=== PATIENT | male | born 1950 | race Caucasian/White ===

== ENCOUNTER 2021-07-11 22:04 | Inpatient (IN) | payer MEDICARE ==
[~2021-07-11] VITALS: Ht 177.8 cm; Wt 82.6 kg
--- NOTE | 2021-07-11 22:34 | NUR ---
Called Firebrick And Refractory Tile Repairer for a sitter, no sitter available at this time, ER staff will monitor patient for now.
[2021-07-11] MEDS ORDERED: MULT-594 PO (22:50)
[2021-07-11] MEDS ORDERED: FINA5TAB11 PO (22:50)
[2021-07-11] MEDS ORDERED: LEVO25TA9 PO (22:50)
[2021-07-11] MEDS ORDERED: AMIT10TA6 PO (22:50)
[2021-07-11] MEDS ORDERED: TRAM50TA2 PO (22:50)
[2021-07-11] MEDS ORDERED: CYCL5TAB PO (22:50)
[2021-07-11] MEDS ORDERED: TRAZ-257 PO (22:50)
[2021-07-11] MEDS ORDERED: HALOPERIDOL LACTATE 5 MG/1 ML VIAL IM ONE (23:15)
[2021-07-11] MEDS ORDERED: diphenhydrAMINE 50 MG/1 ML VIAL IM ONE (23:15)
[2021-07-11] MEDS ORDERED: LORAZEPAM 2 MG/1 ML VIAL IM ONE (23:15)
[2021-07-11] MEDS ORDERED: HALOPERIDOL LACTATE 5 MG/1 ML VIAL ONE (23:19)
[2021-07-11] MEDS ORDERED: diphenhydrAMINE 50 MG/1 ML VIAL ONE (23:19)
[2021-07-11] MEDS ORDERED: LORAZEPAM 2 MG/1 ML VIAL ONE (23:20)
--- NOTE | 2021-07-12 00:38 | NUR ---
Pt medically cleared by Dr. Dorantes.
--- NOTE | 2021-07-12 00:40 | NUR ---
Report given to [facility].
[2021-07-12 01:10] VITALS: BP 125/79
[2021-07-12] MEDS ORDERED: MAGNESIUM HYDROXIDE 30 ML LIQUID UDC PO PRN (01:30)
[2021-07-12] MEDS: LORAZEPAM 1 MG TABLET PO PRN (01:42)
--- NOTE | 2021-07-12 04:11 | NUR ---
Pt arrived in the unit at 0110 from ER via gurney. Pt on 72 hour hold, gravely disabled. Pt is uncooperative and restless. Pt denies SI. No acute distress noted. Denies pain/ discomfort. Pt noted to have flight of ideas and selective in questions he wants to answer. Refused to sign paper work but agreed for photos. Pt oriented in room and snack provided. Ativan given. Pt safely in bed. Safety measures maintained. Will continue to monitor.
[2021-07-12 07:30] VITALS: BP 122/83
[2021-07-12] MEDS ORDERED: LEVOTHYROXINE SODIUM 25 MCG TABLET PO ONE (12:30)
--- NOTE | 2021-07-12 14:00 | NUR ---
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 Claimed he wants a different Psychiatrist , informed he can talk to Dr Shields in the morning when he comes back do do his rounds. Noted needy demanding behavior, and can be sarcastic with his answers .
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
--- NOTE | 2021-07-12 15:30 | NUR ---
PT NOTED HIGHLY AGITATED AND HOSTILE. HE HAD A CONFRONTATION WITH ANOTHER PT REGARDING WHAT CHANNEL TO WATCH. INSTRUCTED TO TAKE TURNS WITH WATCHING TV SHOWS OF PREFERENCE. BEGAN STATING TO GENERAL MAINTENANCE HELPER "YOU FUCKING CUNT. YOU FUCKING BITCH. YOU DON'T GIVE A SHIT, DO YOU?" REDIRECTED NEEDED.
[2021-07-12 16:00] VITALS: BP 152/88
[2021-07-12] MEDS: MAG HYDROX/AL HYDROX/SIMETH 30 ML LIQUID UDC PO PRN (16:10)
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
[2021-07-12] MEDS: DIVALPROEX 125 MG TABLET.DR PO SCH ×2 (17:00→17:04)
--- NOTE | 2021-07-12 17:00 | NUR ---
RECEIVED A CALL FROM BULLDOZER/LOADER/COMPACTOR/SCRAPER STATING PT CALLED ASKING FOR HELP. INSTRUCTED PT NOT DO DIAL THE POLICE, AND TO NOTIFY STAFF IF HE NEEDS ASSISTANCE. PT VERY SARCASTIC AND DEMEANING TO STAFF AT TIMES.
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
--- NOTE | 2021-07-12 17:11 | NUR ---
Gps/Lead Game Designer- Per patient he was spitting up blood , he's having perforated ulcer per pt. Instructed if any blood noted saved in tissue paper. Patient noted doing dry hacking cough , discouraged from doing so, continue to monitor behavior. Patient requesting the address of the ER when he came from in the beginning([facility])Informed patient now he is at [facility] (locked facility) Noted patient gets dramatic claimed he does not feel good , observed walking back to his room , cwill continue to monitor behavior.
--- NOTE | 2021-07-12 17:49 | NUR ---
Gps/Road Design Draftsperson- Per TEAM COORDINATOR patient sitting in the bathroom trying to cough up , scanty blood smears noted from the paper towel.Continue to monitor. Patient was give 30 ml malalox po
[2021-07-12 20:00] VITALS: BP 147/89
[2021-07-12] MEDS: QUETIAPINE FUMARATE 25 MG TABLET PO SCH (20:45)
[2021-07-12] MEDS: ACETAMINOPHEN 325 MG TABLET PO PRN (20:46)
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
[2021-07-12] MEDS: ZOLPIDEM 5 MG TABLET PO PRN (22:16)
[2021-07-13] MEDS: LORAZEPAM 1 MG TABLET PO PRN (01:38)
--- NOTE | 2021-07-13 01:40 | NUR ---
PATIENT WAS AWAKEN BY ROOM MATE. HE WAS NOTED IRRITABLE, HYPERVERBAL, GRANDIOSE DELUSIONAL THINKING AND AGITATION. HE IS NOTED WITH POOR INSIGHT AND JUDGMENT TO THE REASON FOR HIS ADMISSION TO MHU. HE REQUIRED MULTIPLE REDIRECTION AND REASSURANCE. ATIVAN 1MG PO PRN WAS GIVEN FOR AGITATION. WILL CONITNUE TO MONITOR.
[2021-07-13] MEDS: ACETAMINOPHEN 325 MG TABLET PO PRN ×2 (04:06→21:23)
[2021-07-13 07:43] VITALS: BP 129/91
[2021-07-13] MEDS: DIVALPROEX 125 MG TABLET.DR PO SCH ×4 (08:44→16:22)
--- NOTE | 2021-07-13 10:30 | NUR ---
Gps/Web Engineer- Patient requesting to see another Psychiatrist , Dr Shields was aware, was instructed to have available Psychiatrist see patient in am.
[2021-07-13] MEDS: NEOMY/BACITRAC/POLYMI OINT 28.35 GM TUBE TOP SCH (12:35)
[2021-07-13] MEDS: FINASTERIDE 5 MG TABLET PO SCH (12:36)
[2021-07-13] MEDS: LEVOTHYROXINE SODIUM 25 MCG TABLET PO SCH (14:01)
[2021-07-13 15:53] VITALS: BP 155/89
--- NOTE | 2021-07-13 16:23 | NUR ---
Gps/Game Producer- Patient not consistent in his medication compliance, refusing to take depakote 125 mg ," i done want to be drugged up, i had IBC " Explained to patient reason for his mediations/rationale, per pt. he has the right to refused, his med. informed if he kept refusing his meds. Psychiatrist might resort to different treatment, claimed his hold is up soon
[2021-07-13] MEDS: QUETIAPINE FUMARATE 25 MG TABLET PO SCH (20:04)
--- NOTE | 2021-07-13 21:00 | NUR ---
received patient in the day room, he is noted A/O x 2. he continue hyperverbal, poor insight and judgment is noted as to the reason for his admission to MHU. patient is reassured for her safety. V/S stable. PO fluids and snacks are given. Safety and fall precaution in place. will continue to monitor.
[2021-07-13] MEDS: ZOLPIDEM 5 MG TABLET PO PRN (21:22)
[2021-07-13 21:53] VITALS: BP 129/92
[2021-07-14] MEDS: TRAMADOL HCL 50 MG TABLET PO PRN ×2 (00:28→13:38)
[2021-07-14] MEDS ORDERED: OLANZAPINE 10 MG VIAL IM ONE (01:15)
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
--- NOTE | 2021-07-14 02:20 | NUR ---
PATIENT NOTED CALM. HE WAS TAKEN TO THE TOILET AND PLACED BACK IN A JAREK CHAIR FOR SAFETY. HE STATED, "I AM SORRY, I DIDN'T MEAN TO HURT HIM, I WAS HEARING VOICES, I THOUGHT THE DOCTOR AND OTHER PEOPLE WERE CHASING ME. I DIDN'T MEAN TO HURT HIM, I AM SORRY, I AM SORRY". WILL CONTINUE TO MONITOR.
[2021-07-14] MEDS: LORAZEPAM 1 MG TABLET PO PRN (02:21)
[2021-07-14] MEDS: CYCLOBENZAPRINE HCL 10 MG TABLET PO PRN ×2 (03:05→22:30)
[2021-07-14] MEDS: ACETAMINOPHEN 325 MG TABLET PO PRN (05:10)
[2021-07-14] MEDS: LEVOTHYROXINE SODIUM 25 MCG TABLET PO SCH (06:32)
[2021-07-14 07:36] VITALS: BP 137/86
[2021-07-14] MEDS ORDERED: ZOLPIDEM 5 MG TABLET PO PRN (08:30)
[2021-07-14] MEDS: MULTIVITAMINS,THERAPEUTIC TABLET PO SCH (08:54)
[2021-07-14] MEDS: NEOMY/BACITRAC/POLYMI OINT 28.35 GM TUBE TOP SCH (08:59)
[2021-07-14] MEDS ORDERED: DIVALPROEX 125 MG TABLET.DR PO SCH (09:00)
[2021-07-14] MEDS: FINASTERIDE 5 MG TABLET PO SCH (09:01)
[2021-07-14] MEDS: OLANZAPINE 5 MG TABLET PO SCH ×2 (09:01→20:45)
[2021-07-14] MEDS: DIVALPROEX 250 MG TABLET.DR PO SCH ×2 (09:01→20:45)
--- NOTE | 2021-07-14 10:07 | NUR ---
Firearms Report: Cemetery Counselor completed and submitted a DOJ firearms report for 5150 grave disability certifications. A copy of report has been placed in patient chart.
--- NOTE | 2021-07-14 12:16 | NUR ---
SW Initial Discharge Note Patient currently resides at home [address] [place] [address] ([phone]). Patient currently resides alone and reports to have limited social support. SW met with pt to discuss discharge planning and pt appears to want to return home upon discharge.
[2021-07-14 15:37] VITALS: BP 165/83
--- NOTE | 2021-07-14 20:30 | NUR ---
Received patient in the day room. he is noted A/O x 2. continue hyperverbal, sarcastic, grandiose delusional thinking hyperverbal, attention seeker manipulative, and restless. Patient is hard to redirect, requires multiple redirections. he is able to comply with medication regiment. He was given PO fluids and snacks. he refused V/S. he continue reusing blood drawn. He is reassured for his safety. Safety and fall precaution are in place. will continue to monitor.
[2021-07-15] MEDS: TRAMADOL HCL 50 MG TABLET PO PRN ×2 (03:12→21:13)
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
[2021-07-15] MEDS: LEVOTHYROXINE SODIUM 25 MCG TABLET PO SCH (06:46)
[2021-07-15 07:30] VITALS: BP 154/99
[2021-07-15 07:42] LABS: HEMATOCRIT 37.5 % (36.7-47.1); MEAN CORPUSCULAR HEMOGLOBIN 32.8 uug (23.8-33.4); MEAN CORPUSCULAR VOLUME 95.9 fL (73.0-96.2); PLATELET COUNT (AUTO) 296 K/uL (152-348)
[2021-07-15 07:51] LABS: MAGNESIUM 2.2 mg/dL (1.8-2.4); POTASSIUM 3.9 mmol/L (3.5-5.1)
[2021-07-15 08:07] LABS: THYROID STIMULATING HORMONE 15.193 mIU/mL (0.358-3.740)
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
[2021-07-15] MEDS: LORAZEPAM 1 MG TABLET PO PRN ×2 (08:46→22:16)
[2021-07-15] MEDS: DIVALPROEX 250 MG TABLET.DR PO SCH ×2 (08:46→20:57)
[2021-07-15] MEDS: FINASTERIDE 5 MG TABLET PO SCH (08:46)
[2021-07-15] MEDS: MULTIVITAMINS,THERAPEUTIC TABLET PO SCH (08:47)
[2021-07-15] MEDS: NEOMY/BACITRAC/POLYMI OINT 28.35 GM TUBE TOP SCH (08:48)
[2021-07-15] MEDS: OLANZAPINE 5 MG TABLET PO SCH ×2 (10:32→20:57)
--- NOTE | 2021-07-15 12:58 | NUR ---
GPS: PER DR SHARMA, REQUESTING URINALYSIS PT NOTED WITH HISTORY OF PROSTATITIS AND PER PT HE WAS TAKING ATB. TO RULE OUT ANY INFECTION.
[2021-07-15 15:40] VITALS: BP 151/71
--- NOTE | 2021-07-15 16:31 | NUR ---
GPS: PT APPROACHED THE LEGISLATIVE CORRESPONDENT AFTER A NEUROLOGIST SAW THE PT AND STATED THAT PER NEUROLOGIST HE WAS ALREADY CLEAR AND HE CAN NOW BE READY FOR DISCHARGE AND TAKE THE BUS. RE-EDUCATED PT THAT WILL HAVE TO WAIT TILL TOMORRROW AND SPEAK WITH PSYCHIATRIST WHO WILL DECIDE ON THE NEXT PLAN. PT UNDERSTOOD.
[2021-07-15 20:47] VITALS: BP 142/83
[2021-07-15] MEDS ORDERED: TRAZODONE 50 MG TABLET PO SCH (21:00)
[2021-07-16] MEDS: LORAZEPAM 1 MG TABLET PO PRN ×3 (04:35→22:50)
--- NOTE | 2021-07-16 04:52 | NUR ---
remains attention seeking needy, and demanding. No aggressive behavior noted, PRN ativan was given at 2215, and he slept for a few hours, Ultram was given at 2112, for generalized pain, with good results. HE is now needy, tearful, and attention seeking. PRN ativan was given at 434, for anxiety. monitored closely for safety.
--- NOTE | 2021-07-16 06:00 | NUR ---
Slept 45 minutes, total. Continues be intrusive, and attention seeking.
[2021-07-16] MEDS: LEVOTHYROXINE SODIUM 75 MCG TABLET PO SCH (06:18)
[2021-07-16] MEDS: TRAMADOL HCL 50 MG TABLET PO PRN ×2 (06:19→21:58)
[2021-07-16 07:30] VITALS: BP 119/78
[2021-07-16] MEDS: NEOMY/BACITRAC/POLYMI OINT 28.35 GM TUBE TOP SCH (09:05)
[2021-07-16] MEDS: MULTIVITAMINS,THERAPEUTIC TABLET PO SCH (09:05)
[2021-07-16] MEDS: OLANZAPINE 5 MG TABLET PO SCH (09:05)
[2021-07-16] MEDS: FINASTERIDE 5 MG TABLET PO SCH (09:05)
[2021-07-16] MEDS: DIVALPROEX 250 MG TABLET.DR PO SCH ×2 (09:05→21:45)
[2021-07-16] MEDS: ACETAMINOPHEN 325 MG TABLET PO PRN (15:39)
--- NOTE | 2021-07-16 16:13 | NUR ---
PROBABLE CAUSE HEARING: Patient's probable cause hearing was held today for the 5250 hold. 5250 hold upheld for GD. Patient requesting a writ hearing. Writ hearing petition faxed to court by this rfp writer. Court was called to confirm document was received but the court is closed.
[2021-07-16 16:29] VITALS: BP 150/93
[2021-07-16 20:14] VITALS: BP 118/66
[2021-07-16] MEDS ORDERED: OLANZAPINE 5 MG TABLET PO SCH (21:00)
[2021-07-16] MEDS: MAG HYDROX/AL HYDROX/SIMETH 30 ML LIQUID UDC PO PRN (22:39)
[2021-07-17] MEDS: ACETAMINOPHEN 325 MG TABLET PO PRN (04:46)
[2021-07-17] MEDS: LEVOTHYROXINE SODIUM 75 MCG TABLET PO SCH (06:28)
[2021-07-17 06:49] LABS: *BILIRUBIN,URIN NEGATIVE (NEGATIVE); *BLOOD, URINE NEGATIVE (NEGATIVE); *CLARITY,URINE CLEAR (CLEAR); *COLOR,URINE YELLOW (YELLOW); *KETONES,URINE NEGATIVE (NEGATIVE); *UROBILINOGEN,URINE 0.2 E.U./dl (NORMAL); LEUKOCYTE ESTERASE ,URINE NEGATIVE (NEGATIVE); NITRITE, URINE NEGATIVE (NEGATIVE); PH,URINE 6.5 (5.0-8.0); UGLUCOSE NEGATIVE (NEGATIVE)
[2021-07-17] MEDS: MULTIVITAMINS,THERAPEUTIC TABLET PO SCH (09:10)
[2021-07-17] MEDS: FINASTERIDE 5 MG TABLET PO SCH (09:10)
[2021-07-17] MEDS: OLANZAPINE 5 MG TABLET PO SCH (09:10)
[2021-07-17] MEDS: NEOMY/BACITRAC/POLYMI OINT 28.35 GM TUBE TOP SCH (09:11)
[2021-07-17] MEDS: DIVALPROEX 250 MG TABLET.DR PO SCH ×2 (09:11→20:24)
[2021-07-17] MEDS: LORAZEPAM 1 MG TABLET PO PRN ×2 (14:11→22:42)
--- NOTE | 2021-07-17 14:12 | NUR ---
Gps/Spine Surgeon- Anxious, complaining about his roommate's behavior, claimed they does'nt get along intrusive behavior . room changed to #141 A.
[2021-07-17 16:00] VITALS: BP 145/81
--- NOTE | 2021-07-17 17:10 | NUR ---
Gps/Director Plans- Patient come out of his room limping, noted his left foot/ankle slightly swollen, slightly reddened, complained of being painful. Luz Elena Sanon DNP was called order received. Ultram 50 mg 1 tab. po, given, ice pack to left ankle applied. foot elevated on pillow. X-ray of left ankle complete portable.
[2021-07-17] MEDS: TRAMADOL HCL 50 MG TABLET PO PRN (17:13)
[2021-07-17] MEDS ORDERED: PETROLATUM,WHITE JELLY 28.35 GM TUBE TP PRN (18:00)
[2021-07-17 20:00] VITALS: BP 137/82
[2021-07-17] MEDS ORDERED: OLANZAPINE 5 MG TABLET PO SCH (21:00)
[2021-07-18] MEDS: TRAMADOL HCL 50 MG TABLET PO PRN ×3 (04:36→21:54)
[2021-07-18] MEDS: LEVOTHYROXINE SODIUM 75 MCG TABLET PO SCH (06:02)
[2021-07-18 07:12] LABS: HEMATOCRIT 37.4 % (36.7-47.1); MEAN CORPUSCULAR HEMOGLOBIN 32.1 uug (23.8-33.4); PLATELET COUNT (AUTO) 320 K/uL (152-348)
[2021-07-18 07:29] LABS: BILIRUBIN,TOTAL 0.5 mg/dL (0.2-1.0); POTASSIUM 4.3 mmol/L (3.5-5.1); TOTAL PROTEIN, SERUM 7.7 g/dL (6.4-8.2)
[2021-07-18 07:30] VITALS: BP 153/93
[2021-07-18] MEDS: MULTIVITAMINS,THERAPEUTIC TABLET PO SCH (08:42)
[2021-07-18] MEDS: OLANZAPINE 5 MG TABLET PO SCH (08:42)
[2021-07-18] MEDS: DIVALPROEX 250 MG TABLET.DR PO SCH ×3 (08:42→16:37)
[2021-07-18] MEDS: FINASTERIDE 5 MG TABLET PO SCH (08:42)
[2021-07-18] MEDS: NEOMY/BACITRAC/POLYMI OINT 28.35 GM TUBE TOP SCH (08:43)
--- NOTE | 2021-07-18 11:10 | NUR ---
PT RECEIVED AMBULATING UNIT HALLWAY. PT IS VERY INTRUSIVE, DEMANDING, FREQUENTLY AT NURSES STATION WITH DIFFERENT QUESTIONS AND NEEDS. DIFFICULT TO SATISY ALL OF PT'S NEEDS. 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 NO COMBATIVE BEHAVIOR NOTED.
[2021-07-18] MEDS: OLANZAPINE ZYDIS 5 MG TAB.RAPDIS PO SCH (16:36)
[2021-07-18 16:50] VITALS: BP 158/84
--- NOTE | 2021-07-18 18:53 | NUR ---
PT CONTINUES TO BE EXCESSIVELY RUDE, DEMANDING, INTRUSIVE, AND NEEDY. FREQUENTLY AT NURSES STATION MAKING MULTIPLE DEMANDS AND COMPLAINTS, STATING HIS NEEDS ARE NOT BEING MET. PT COMPLAINING OF RIGHT FOOT PAIN, HOG RINGER CALLED TO INCREASE TRAMADOL DOSAGE PER PT REQUEST. HOG RINGER JUST RECEIVED A CALL FROM SOMEONE WHO IDENTIFIED HERSELF ADVICE NURSE PATY FROM THE [facility], STATING PT CALLED HER AND COMPLAINING THAT STAFF IS NOT ATTENDING TO HIS NEEDS. EXPLAINED TO VA NURSE THAT ALL HIS NEEDS ARE BEING MET, BUT PT CAN BE FORGETFUL, NEEDY, AND MANIPULATIVE AT TIMES. VA NURSE AGREEABLE WITH EXPLANATION.
[2021-07-18 20:36] VITALS: BP 166/82
[2021-07-18] MEDS: TRAZODONE 50 MG TABLET PO SCH (21:31)
[2021-07-18] MEDS: LORAZEPAM 1 MG TABLET PO PRN (21:39)
--- NOTE | 2021-07-18 22:15 | NUR ---
GPS: Pt. continues to be needy,demanding,irritable,grandiose and delusional. Gets easily agitated when his demands are not granted immediately. Pt.feels entitled,complaining that he's not getting the care that he needs. Pt.is also manipulative. Due meds.given. Pain med.given earlier. Rest periods encouraged to facilitate sleep.Uncooperative with unit rules at times. Needs attended. Will continue to re-direct and monitor prn.
[2021-07-18] MEDS: OLANZAPINE ZYDIS 5 MG TAB.RAPDIS PO PRN (23:17)
[2021-07-19] MEDS: LEVOTHYROXINE SODIUM 75 MCG TABLET PO SCH (07:23)
[2021-07-19 08:15] VITALS: BP 128/81
[2021-07-19] MEDS: FINASTERIDE 5 MG TABLET PO SCH (08:31)
[2021-07-19] MEDS: OLANZAPINE ZYDIS 5 MG TAB.RAPDIS PO SCH ×2 (08:31→17:18)
[2021-07-19] MEDS: DIVALPROEX 250 MG TABLET.DR PO SCH ×3 (08:31→17:18)
[2021-07-19] MEDS: MULTIVITAMINS,THERAPEUTIC TABLET PO SCH (08:32)
[2021-07-19] MEDS: NEOMY/BACITRAC/POLYMI OINT 28.35 GM TUBE TOP SCH (08:33)
[2021-07-19] MEDS: TRAMADOL HCL 50 MG TABLET PO PRN ×2 (10:54→21:15)
--- NOTE | 2021-07-19 14:24 | NUR ---
GPS: Nursing Notes: Thought Disorder: Patient is awake and responding to his name, impaired judgment, calling a [facility] at [place] and complaining that he is not getting the care that he needs here, [facility] Addendum: 07/20/21 at 1235 by RATNA HERNANDEZ LVN GPS: Disregard above charting - staff - error.
--- NOTE | 2021-07-19 14:27 | NUR ---
GPS: Nursing Notes: Thought Disorder: Patient is awake and responding to his name, impaired judgment, calling a [facility] [place] and complaining that he is not getting the care that he needs here, [facility] Nurse called and stated that he is calling them complaining that he is not getting the care that he needs here, episode of cheeking his Depakote, stated "I am not here for mental problems... I am her for medical problems..", encouraged to be compliant with his medication, patient swallow his Depakote, argumentative, needy, manipulative behavior, saying one thing to one nurse and another thing to another nursed, redirected during shift, gets easily irritable when redirected or when his demands are not met immediately, continue with treatment plan.
[2021-07-19] MEDS: LORAZEPAM 1 MG TABLET PO PRN ×2 (14:44→22:58)
--- NOTE | 2021-07-19 14:48 | NUR ---
PT AT NURSES STATION, QUITE PLEASANT AT THIS TIME. BUT PT IS NOTED WITH DELUSIONS OF GRANDIOSITY. 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 QUITE HYPERVERBAL BUT REDIRECTABLE AND PLEASANT.
[2021-07-19 15:48] VITALS: BP 133/89
[2021-07-19 20:00] VITALS: BP 138/91
[2021-07-19] MEDS: TRAZODONE 50 MG TABLET PO SCH (20:20)
--- NOTE | 2021-07-19 20:30 | NUR ---
RECEIVED PATIENT IN THE DAY ROOM WATCHING TV. HE IS NOTED A/O X 3 ABLE TO MAKE HIS NEEDS KNOWN. HE CONTINUE HYPERVERBAL. GRANDIOSE DELUSIONAL THINKING, AND PSYCHOSOMATIC . PATIENT STATED, "I AM A VERY EDUCATED MAN AND I UNDERSTAND EVERYTHING". HE ALSO STATED, "I DON'T BELONG IN THIS UNIT, I NEED TO SEE THE MEDICAL DOCTOR, I NEED TO BE ON THE MEDIAL FLOOR". PATIENT ALSO NOTED WITH POOR INSIGHT AND JUDGMENT TO THE REASON FOR HIS ADMISSION TO MHU. PT IS REASSURED FOR HIS SAFETY. SAFETY AND FALL PRECAUTIONS IN PLACE. V/S STABLE. HE WAS GIVEN PO FLUIDS AND SNACKS, WILL CONTINUE TO MONITOR.
[2021-07-20] MEDS: LEVOTHYROXINE SODIUM 75 MCG TABLET PO SCH (06:57)
[2021-07-20 07:30] LABS: HEMATOCRIT 37.7 % (36.7-47.1); MEAN CORPUSCULAR HEMOGLOBIN 32.4 uug (23.8-33.4); MEAN CORPUSCULAR VOLUME 96.6 fL (73.0-96.2); PLATELET COUNT (AUTO) 352 K/uL (152-348)
[2021-07-20 07:40] VITALS: BP 125/82
[2021-07-20 08:12] LABS: ALANINE AMINOTRANSFERASE 48 U/L (16-63); ALKALINE PHOSPHATASE 74 U/L (50-136); ASPARTATE AMINOTRANSFERASE 36 U/L (15-37); BILIRUBIN,TOTAL 0.5 mg/dL (0.2-1.0); CARBON DIOXIDE 31 mmol/L (21-32); CHLORIDE 104 mmol/L (98-107); CREATININE 1.2 mg/dL (0.6-1.3); GLUCOSE 112 mg/dL (74-106); POTASSIUM 4.7 mmol/L (3.5-5.1); TOTAL PROTEIN, SERUM 7.5 g/dL (6.4-8.2); UREA NITROGEN, BLOOD 10 mg/dL (7-18)
[2021-07-20] MEDS: MULTIVITAMINS,THERAPEUTIC TABLET PO SCH (08:20)
[2021-07-20] MEDS: DIVALPROEX 250 MG TABLET.DR PO SCH ×3 (08:20→16:30)
[2021-07-20] MEDS: OLANZAPINE ZYDIS 5 MG TAB.RAPDIS PO SCH ×2 (08:21→16:31)
[2021-07-20] MEDS: FINASTERIDE 5 MG TABLET PO SCH (08:21)
[2021-07-20] MEDS: NEOMY/BACITRAC/POLYMI OINT 28.35 GM TUBE TOP SCH (08:22)
[2021-07-20 11:08] LABS: VALPROIC ACID < 3 ug/mL (50-100)
--- NOTE | 2021-07-20 13:21 | NUR ---
GPS: Nursing Notes: C/O Having Allergic Reaction: Patient complaining of having rashes on his body, complaining of having an allergic reaction, believes that he is going to here, Brian PARIS informed, CUPOLA OPERATOR examine the patient and explained the treatment for his dermatitis per CUPOLA OPERATOR diagnosis, continue to monitor patient for safety, staff will follow up with Brian PARIS orders as soon as they are verify by the pharmacy, continue with treatment plan.
[2021-07-20] MEDS: diphenhydrAMINE 25 MG CAP PO PRN ×2 (13:36→23:10)
[2021-07-20] MEDS: ACETAMINOPHEN 325 MG TABLET PO PRN (14:29)
[2021-07-20] MEDS: CYCLOBENZAPRINE HCL 10 MG TABLET PO PRN (14:29)
[2021-07-20] MEDS: TRIAMCINOLONE ACET 0.025% CREA 15 GM TUBE TP SCH (15:54)
[2021-07-20 16:03] VITALS: BP 137/78
[2021-07-20 20:16] VITALS: BP 163/91
--- NOTE | 2021-07-20 20:45 | NUR ---
GPS: Refused to have his B/P re-checked at this time despite numerous attempts by staff. Denies any SOB,chest pains when asked.
[2021-07-20] MEDS: TRAZODONE 50 MG TABLET PO SCH (20:49)
[2021-07-20] MEDS: TRAMADOL HCL 50 MG TABLET PO PRN (20:55)
[2021-07-20] MEDS: LORAZEPAM 1 MG TABLET PO PRN (22:26)
[2021-07-20] MEDS: OLANZAPINE ZYDIS 5 MG TAB.RAPDIS PO PRN (23:10)
[2021-07-21] MEDS: ACETAMINOPHEN 325 MG TABLET PO PRN (05:13)
[2021-07-21] MEDS: LEVOTHYROXINE SODIUM 75 MCG TABLET PO SCH (06:07)
[2021-07-21 08:03] VITALS: BP 148/81
[2021-07-21] MEDS: diphenhydrAMINE 25 MG CAP PO PRN (08:26)
[2021-07-21] MEDS: VALPROIC ACID 250 MG/5 ML LIQUID UDC PO SCH ×3 (08:26→17:00)
[2021-07-21] MEDS: FINASTERIDE 5 MG TABLET PO SCH (08:27)
[2021-07-21] MEDS: NEOMY/BACITRAC/POLYMI OINT 28.35 GM TUBE TOP SCH (08:27)
[2021-07-21] MEDS: OLANZAPINE ZYDIS 5 MG TAB.RAPDIS PO SCH (08:27)
[2021-07-21] MEDS: MULTIVITAMINS,THERAPEUTIC TABLET PO SCH (08:27)
[2021-07-21] MEDS ORDERED: LORAZEPAM 2 MG/1 ML VIAL IM ONE (08:30)
[2021-07-21] MEDS ORDERED: VALPROIC ACID 250 MG CAPSULE PO SCH (09:00)
[2021-07-21] MEDS ORDERED: VALPROIC ACID 250 MG/5 ML LIQUID UDC PO SCH (09:00)
--- NOTE | 2021-07-21 09:20 | NUR ---
Called the court at [phone] around 09:00 for patient writ, talked to Marianela who told me the writ is going to be held on July 23 at 08:[address] Shields at 09:10 am to let him know about the writ date and time.
[2021-07-21] MEDS: risperiDONE-M 0.5 MG TAB.RAPDIS PO SCH ×2 (09:57→17:01)
[2021-07-21] MEDS: TRIAMCINOLONE ACET 0.025% CREA 15 GM TUBE TP SCH (12:39)
[2021-07-21 16:03] VITALS: BP 126/87
--- NOTE | 2021-07-21 18:37 | NUR ---
GPS: Nursing Notes: Ativan - Date To Be Corrected By Pharmacy: Staff spoke with pharmacist to correct the date for the Ativan IM to be given tomorrow at 08:30 am.
--- NOTE | 2021-07-21 18:40 | NUR ---
GPS: Nursing Notes: MRI Set Up: Patient to have MRI tomorrow, Kelton , the vending service technician. set up the MRI for 09:00 am at 07/22/21, ambulance - [facility] will picking tech the patient at 08:30 am. Ativan 2mg IM to be given 10 min. prior picking tech for sedation, patient c/o claustrophobia, staff - Madie would follow up with patient tomorrow, staff schedule to work tomorrow, continue with treatment plan.
[2021-07-21] MEDS: TRAMADOL HCL 50 MG TABLET PO PRN (18:54)
[2021-07-21] MEDS: MAG HYDROX/AL HYDROX/SIMETH 30 ML LIQUID UDC PO PRN (19:17)
[2021-07-21] MEDS: LORAZEPAM 1 MG TABLET PO PRN (20:06)
[2021-07-21] MEDS ORDERED: TRAZODONE 50 MG TABLET PO SCH (21:00)
[2021-07-21] MEDS: CYCLOBENZAPRINE HCL 10 MG TABLET PO PRN (21:21)
[2021-07-22] MEDS: diphenhydrAMINE 25 MG CAP PO PRN (01:47)
[2021-07-22] MEDS: ACETAMINOPHEN 325 MG TABLET PO PRN (01:47)
[2021-07-22] MEDS: LEVOTHYROXINE SODIUM 75 MCG TABLET PO SCH (06:03)
[2021-07-22 08:00] VITALS: BP 140/88
[2021-07-22] MEDS ORDERED: LORAZEPAM 2 MG/1 ML VIAL IM ONE (08:30)
[2021-07-22] MEDS: NEOMY/BACITRAC/POLYMI OINT 28.35 GM TUBE TOP SCH (09:00)
[2021-07-22] MEDS: TRIAMCINOLONE ACET 0.025% CREA 15 GM TUBE TP SCH (09:00)
[2021-07-22] MEDS: FINASTERIDE 5 MG TABLET PO SCH (09:00)
[2021-07-22] MEDS: MULTIVITAMINS,THERAPEUTIC TABLET PO SCH (09:00)
[2021-07-22] MEDS: risperiDONE-M 0.5 MG TAB.RAPDIS PO SCH ×2 (09:00→17:58)
[2021-07-22] MEDS: VALPROIC ACID 250 MG/5 ML LIQUID UDC PO SCH ×3 (09:00→17:58)
--- NOTE | 2021-07-22 09:18 | NUR ---
GPS: PT LEFT THE HOSPITAL ACCOMPANIED BY KAYLIN, PROMOTIONS COORDINATOR AT 3RD FLOOR MED SURG VIA AMBULANCE, TO [facility] FOR MRI OF HEAD DUE TO HEAD INJURY/ CONCUSSION WITH ALTERED MENTAL STATUS. PT WAS ADMINISTERED WITH LORAZEPAM 2MG/1ML IM ON LEFT UPPER OUTER BUTTOCK AND TOLERATED WELL BY PT. DENIES ANY PAIN OR DISCOMFORT. PARAMEDICS SIGNED TRANSFER FORM AND MED LIST AND FACESHEET GIVEN.
--- NOTE | 2021-07-22 10:31 | NUR ---
GPS:PT CAME BACK FROM MRI AND TOLERATED WELL BY PT. NO AGGRESSIVE BEHAVIOR NOTED BY ASSISTANT SCIENTIST WHO ACCOMPANIED THE PT. PT FELL ASLEEP IN THE MIDDLE OF MRI. PT ALERT AND ORIENTED X 3 DENIES ANY PAIN OR DISCOMFORT.
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
--- NOTE | 2021-07-22 15:18 | NUR ---
GPS: PT COOPERATIVE WITH CARE AND COMPLIANT WITH MEDICATION. PT HYPERVERBAL AND NEEDY. 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 PT ATTENTION SEEKER. REDIRECTABLE AT TIMES. LIKES PACING THE HALLWAY AND TALKS TO OTHER PT. NO AGRESSIVE BEHAVIOR AT THIS TIME.
--- NOTE | 2021-07-22 15:19 | NUR ---
Clinical Social Work Note SW met with patient to discuss discharge planning. Patient is alert and oriented x3. Patient presents with withdrawn mood and flat affect. Patient stated that he does not want SNF placement and he would like to return home ([address] [place] [address]). Patient stated that [place] where he has support of neighbors as well as the managers at his home community. Patient stated that he also looking into private duty home care to help support him. Patient stated that his income is 5000 a month which is from the [facility] benefits. Plan: SW will help safe discharge when patient is ready.
[2021-07-22 16:14] VITALS: BP 113/80
--- NOTE | 2021-07-22 16:43 | NUR ---
GPS: PT IS COMING BACK AND FORTH AT THE NURSE STATION ASKING FOR A GLAUCOMA EYE DROP THAT PT HAS BEEN GETTING FOR ALMOST 3 YRS NOW. PT DOES NOT HAVE ANY SUCH MEDICATION. REDIRECTED AND RE-ORIENTED PT THAT HE DOES NOT GET THAT EYEDROPS EVEN BEFORE THE ADMISSION. PT STATED HE'S BEGINNING TO REMEMBER SOME THINGS AFTER THE CONCUSSION MADE HIM FORGETFUL.
--- NOTE | 2021-07-22 19:21 | NUR ---
GPS: SPOKE WITH ALBANIA GURROLA [phone]. PT WILL HAVE HEARING TOMORROW AT AROUND 9AM. PER ROSMERY, DR SHARMA WAS ALREADY INFORMED AND AWARE OF THE VIDEO CALL HEARING THAT WILL HAPPEN TOMORROW.
[2021-07-22] MEDS ORDERED: TRAZODONE 50 MG TABLET PO SCH (21:00)
[2021-07-22] MEDS ORDERED: risperiDONE-M 0.5 MG TAB.RAPDIS PO SCH (21:00)
[2021-07-22 21:07] VITALS: BP 153/90
[2021-07-22] MEDS ORDERED: risperiDONE 1 MG TABLET PO PRN (22:00)
[2021-07-22] MEDS: LORAZEPAM 1 MG TABLET PO PRN (22:39)
[2021-07-22 23:15] LABS: HEMATOCRIT 34.4 % (36.7-47.1); MEAN CORPUSCULAR HEMOGLOBIN 33.7 uug (23.8-33.4); PLATELET COUNT (AUTO) 325 K/uL (152-348)
[2021-07-22 23:23] LABS: BILIRUBIN,TOTAL 0.3 mg/dL (0.2-1.0); CREATININE 1.2 mg/dL (0.6-1.3); POTASSIUM 3.9 mmol/L (3.5-5.1); TOTAL PROTEIN, SERUM 7.1 g/dL (6.4-8.2)
[2021-07-22 23:31] LABS: THYROID STIMULATING HORMONE 12.19 mIU/mL (0.358-3.740)
[2021-07-22] MEDS: TRAMADOL HCL 50 MG TABLET PO PRN (23:45)
[2021-07-23] MEDS: LORAZEPAM 1 MG TABLET PO PRN ×2 (04:47→10:58)
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
[2021-07-23] MEDS: LEVOTHYROXINE SODIUM 75 MCG TABLET PO SCH (07:03)
--- NOTE | 2021-07-23 07:06 | NUR ---
Slept 1 hour, total. Remains calm. 1;1 sitter remains at side.
[2021-07-23 07:30] VITALS: BP 135/79
[2021-07-23] MEDS: VALPROIC ACID 250 MG/5 ML LIQUID UDC PO SCH ×2 (08:47→12:50)
[2021-07-23] MEDS: NEOMY/BACITRAC/POLYMI OINT 28.35 GM TUBE TOP SCH (08:48)
[2021-07-23] MEDS: risperiDONE-M 0.5 MG TAB.RAPDIS PO SCH (08:48)
[2021-07-23] MEDS: TRIAMCINOLONE ACET 0.025% CREA 15 GM TUBE TP SCH (08:48)
[2021-07-23] MEDS: FINASTERIDE 5 MG TABLET PO SCH (08:48)
[2021-07-23] MEDS: MULTIVITAMINS,THERAPEUTIC TABLET PO SCH (08:48)
[2021-07-23] MEDS ORDERED: LEVO75TA7 PO (14:50)
--- NOTE | 2021-07-23 14:59 | NUR ---
This insurance writer called [facility], located at [address] [place] [phone] ([phone]) to call in prescriptions for the patient per the psychiatrist Dr. Ignacio. Patient provided with instructions on how to pickle pumper medications from pharmacy, pharmacy address and telephone number, and importance of taking medications as prescribed. Patient stated that he will be making the follow up visit at the [facility] with his psychiatrist Dr. Elidia Goff to continue treatment for mental health needs.
--- NOTE | 2021-07-23 15:25 | NUR ---
Social Work Note Patient was released by the Social Services Designee in his WRIT hearing today. He will return to his apartment [place]. Dr Ignacio has provided one month's worth of medication via prescriptions and these were called in by Mal camacho RN. Patient's psychiatrist is at the [facility] [place] and is Dr Elidia Stewart. He will follow up with her and receivees medical treatment at the [facility]. Patient''s transported him home and is supportive. Patient was calm and cooperative at discharge.
[2021-07-23 16:00] VITALS: BP 113/67
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
== END 2021-07-23 19:03 | disposition home or self-care (01) | DRG 885 ==
LOC: ER 22:07 → GPS 07-12 00:50
PROVIDERS: ADMIT Psychiatry & Neurology Psychosomatic Medicine; ATTEND Nurse Practitioner Family
DX: F25.0 Schizoaffective disorder, bipolar type (principal); R45.851 Suicidal ideations; G89.29 Other chronic pain; E03.9 Hypothyroidism, unspecified; F43.10 Post-traumatic stress disorder, unspecified; L25.9 Unspecified contact dermatitis, unspecified cause; N40.0 Benign prostatic hyperplasia without lower urinary tract symptoms; Z82.49 Family history of ischemic heart disease and other diseases of the circulatory system; Z88.8 Allergy status to other drugs, medicaments and biological substances
CPT/HCPCS: 36415; 70551; 73610; 80164; 83735; 84443; 85025; 87086; 97161; A4663; J1200; J1630; J2060; J2358; J3490; Q0163